=== PATIENT | male | born 1935 | race Caucasian/White ===

== ENCOUNTER 2023-08-16 18:00 | Emergency (ER) | payer OTHER, MEDICAID ==
[~2023-08-16] VITALS: Ht 180.3 cm; Wt 63.5 kg
[2023-08-16 18:12] VITALS: BP 146/86; PULSE 98; RESP 20; TEMP 98.6; O2SAT 98
[2023-08-16 19:35] VITALS: BP 117/79; O2SAT 97
[2023-08-16 20:03] VITALS: PULSE 97; RESP 19; TEMP 98.2; O2SAT 97
== END 2023-08-16 20:03 ==
LOC: MED 18:00
DX: U07.1 COVID-19 (principal); Z79.899 Other long term (current) drug therapy
CPT/HCPCS: 99283